=== PATIENT | male | born 1985 | race Hispanic/Latino ===

== ENCOUNTER 2024-01-28 17:19 | Emergency (ER) | payer SELFPAY ==
[2024-01-28 17:22] VITALS: BP 149/87; PULSE 75; RESP 20; TEMP 36.2; O2SAT 100
--- NOTE | 2024-01-28 22:13 | PC.NURSE ---
Patient called 3 times to room by this RN and KEVIN Huang. No response in waiting room. LWBS-T
== END 2024-01-28 22:10 | disposition left against medical advice (07) ==
LOC: ANHED 22:22
PROVIDERS: PCP Family Medicine
DX: R42 Dizziness and giddiness (principal)
CPT/HCPCS: 99199

== ENCOUNTER 2024-02-17 07:32 | Outpatient (CLI) | payer OTHER, SELFPAY ==
--- NOTE | ~2024-02-17 | MR_ITS ---
EXAMINATION: MR brain/brain stem wo con DATE: 02/17/2024 08:26 INDICATION: Dizziness and giddiness TECHNIQUE: Magnetic resonance imaging (MRI) of the brain and brainstem was performed without intraven ous contrast. Sequences included sagittal and axial T1-weighted SE, axial diffusion-weighted FS SE, a xial 3D SWAN, axial T2-weighted FLAIR, and axial T2-weighted FSE. Apparent diffusion coefficient (ADC ) maps were created. COMPARISON: None. FINDINGS: There are no areas of restricted diffusion to suggest acute infarction. No intracranial hemorrhage or abnormal intracranial mass lesion. There are no intraparenchymal signal abnormalities seen on the ot her pulse sequences. The ventricles are symmetric and normal in size. There are no abnormal extra-axi al fluid collections. Flow voids are seen in the cerebral arteries on the T2-weighted sequences consi stent with their expected patency. Visualized orbits and soft tissues are unremarkable. Mild mucosal thickening the paranasal sinuses IMPRESSION: 1. Normal brain. Reviewed, dictated and finalized at location A. LER OVENS IMPRESSION: 1. Normal brain.
--- NOTE | ~2024-02-17 | MR_ITS ---
EXAMINATION: MRA brain wo con DATE: 02/17/2024 08:26 INDICATION: Dizziness and giddiness TECHNIQUE: Magnetic resonance angiography (MRA) of the brain was performed without intravenous contrast by the 3 D [id number]-[id number] technique. COMPARISON: None. FINDINGS: There is normal flow related signal seen within the vertebral, basilar and internal carotid arteries. Bilateral vertebral arteries are codominant. There is no proximal stenosis. There are no aneurysms identified. Both A1 and P1 segments are patent. There is also a patent right posterior commuting art jessenia and patent but diminutive anterior to indicating left posterior communicating arteries. Flow in t he cerebral arteries is symmetric. IMPRESSION: 1. Normal cerebral MR angiogram. Reviewed, dictated and finalized at location A. ECTIONS ATTORNEY
== END 2024-02-17 07:33 | disposition home or self-care (01) ==
PROVIDERS: PCP Nurse Practitioner Family; Visit Provider Nurse Practitioner Family
DX: R42 Dizziness and giddiness (principal); R20.2 Paresthesia of skin; R06.02 Shortness of breath; H93.A9 Pulsatile tinnitus, unspecified ear; R47.9 Unspecified speech disturbances
CPT/HCPCS: 70544; 70551

== ENCOUNTER 2024-02-20 08:43 | Outpatient (CLI) | payer OTHER, SELFPAY ==
--- NOTE | 2024-02-20 08:52 | ECHO_ITS ---
Patient Info Name: Hemal Lowry Age: 38 years : 1985 Gender: Male Ht: 70 in Wt: 190 lbs BSA: 2.08 m2 HR: 98 bpm BP: 125 / 84 mmHg Technical Quality: Good Exam Date: 02/20/2024 9:08 AM Exam Location: Echo Lab Patient Status: Outpatient Admit Date: 02/20/2024 Staff Ordering Physician: Kamryn Whitman APRN Maple Sugar Maker: Janice Sanabria RDCS Attending Provider: Kamryn Whitman APRN Exam Type: CA echo doppler color flow Study Info Indications R06.02 - Shortness of breath Complete two-dimensional, color flow and Doppler transthoracic echocardiogram is performed. Strain analysis performed. Summary 1. Complete two-dimensional, color flow and Doppler transthoracic echocardiogram is performed. 2. Left ventricular chamber dimension is normal. 3. Left ventricular systolic function is normal, estimated at 60-65%. 4. The left ventricular diastolic function is grade II diastolic dysfunction. 5. E/e' 6 is not elevated. 6. Global longitudinal strain is abnormal at -15.5%. 7. Left atrial chamber dimension is mildly enlarged. 8. There is mild aortic valve sclerosis. 9. There is trace tricuspid valve regurgitation. 10. No pulmonary hypertension, estimated pulmonary arterial systolic pressure is 20 mmHg. Left Ventricle E/e' 6 is not elevated. Global longitudinal strain is abnormal at -15.5%. Left ventricular chamber dimension is normal. Left ventricular systolic function is normal, estimated at 60-65%. The left ventricular diastolic function is grade II diastolic dysfunction. Right Ventricle Right ventricular chamber dimension is normal. Right ventricular systolic function is normal. Left Atria Left atrial chamber dimension is mildly enlarged. Right Atria Right atrial chamber dimension is normal. Aortic Valve The aortic valve is trileaflet. There is mild aortic valve sclerosis. There is no aortic valve stenosis. There is no aortic valve regurgitation. Pulmonic Valve There is no pulmonic regurgitation. Mitral Valve There is no mitral valve stenosis. There is no mitral valve regurgitation. Tricuspid Valve There is trace tricuspid valve regurgitation. No pulmonary hypertension, estimated pulmonary arterial systolic pressure is 20 mmHg. Pericardium/Pleural There is no pericardial effusion. Inferior Vena Cava Normal inferior vena cava with >50% collapse upon inspiration consistent with normal right atrial pressure, 5 mmHg. Aorta The aortic root size at the sinus of Valsalva is normal. Left Ventricular Outflow Tract Name Value Normal LVOT 2D LVOT Diameter 2.0 cm LVOT Doppler LVOT Peak Gradient 4 mmHg LVOT Mean Gradient 2 mmHg LVOT VTI 19 cm LVOT VTI/AV VTI Ratio 0.9 LVOT Stroke Volume 63 ml LVOT CO 4.5 l/min LVOT CI 2.2 l/min/m2 Pulmonic Valve Name Value Normal RVOT Doppler RVOT Peak Gradient 4 mmHg PV Doppler PV Peak Gradient 4 mmHg Mitral Valve Name Value Normal MV Doppler MV Decel [place] 408 cm/s2 MV PHT 63 ms MV Area (PHT) 3.5 cm2 4.0-5.0 MV Diastolic Function MV E Peak Velocity 89 cm/s MV A Peak Velocity 65 cm/s MV E/A 1.4 MV Decel Time 218 ms Tricuspid Valve Name Value Normal TV Regurgitation Doppler TR Peak Velocity 195 cm/s TR Peak Gradient 15 mmHg Estimated PAP/RSVP RA Pressure 5 mmHg <=5 PA Systolic Pressure 20 mmHg <36 RV Systolic Pressure 20 mmHg <36 Aorta Name Value Normal Ascending Aorta Ao Root Diameter (MM) 2.8 cm Ao Root Diam Index (MM) 1.4 cm/m2 Aortic Valve Name Value Normal AV Doppler AV Peak Velocity 114 cm/s AV Peak Gradient 5 mmHg AV Mean Gradient 3 mmHg AV VTI 23 cm AV Area (Cont Eq VTI) 2.8 cm2 >=3.0 AV Area (Cont Eq Osmani) 2.8 cm2 AV Regurgitation 2D LVOT Area 3.2 cm2 Ventricles Name Value Normal LV Dimensions 2D/MM IVS Diastolic Thickness (2D) 0.7 cm 0.6-1.0 IVS Diastole Thickness (MM) 0.8 cm 0.6-1.0 LVID Diastole (2D) 4.6 cm 4.2-5.8 LVID Diastole (MM) 4.6 cm 4.2-5.8 LVIW Diastolic Thickness (2D) 0.7 cm 0.6-1.0 LVIW Diastolic Thickness (MM) 0.9 cm 0.6-1.0 LVID Systole (2D) 3.0 cm 2.5-4.0 LVID Systole (MM) 2.4 cm 2.5-4.0 LVOT Diameter 2.0 cm LV Mass (2D Cubed) 102.85 g 88.00-224.00 LV Mass Index (2D Cubed) 49 g/m2 49-115 Relative Wall Thickness (2D) 0.32 LV Mass (MM Cubed) 119.75 g 88.00-224.00 LV Mass Index (MM Cubed) 58 g/m2 49-115 Relative Wall Thickness (MM) 0.38 LV Fractional Shortening/Ejection Fraction 2D/MM LV Fractional Shortening (2D) 35 % 25-43 LV Fractional Shortening (MM) 48 % 25-43 LV EF (MM Teicholz) 79 % 52-72 LV EF (2D Teicholz) 64 % 52-72 LV Diastolic Volume (4C MOD) 69 ml LV EF (4C MOD) 65 % LV Diastolic Volume (2C MOD) 77 ml LV EF (2C MOD) 67 % LV Diastolic Volume (BP MOD) 72 ml 62-150 LV Diastolic Volume Index (BP MOD) 35 ml/m2 34-74 LV Systolic Volume (BP MOD) 25 ml 21-61 LV Systolic Volume Index (BP MOD) 12 ml/m2 11-31 LV EF (BP MOD) 65 % 52-72 LV Diastolic Length (4C) 8.3 cm LV Systolic Length (4C) 6.4 cm LV Stroke Volume (4C MOD) 45 ml Atria Name Value Normal LA Dimensions LA Dimension (MM) 3.5 cm 3.0-4.1 LA Volume (4C A-L) 50 ml LA Volume (BP A-L) 52 ml RA Dimensions RA Area (4C) 13.4 cm2 <=18.0 EchoPAC Name Value Normal AutoEF LVCO_BiP_Q (Qhws2REY) 3.9 l/min LVEF_BiP_Q (Qmpg1PCG) 60 % LVSV_BiP_Q (Rjgz1VRZ) 57 ml LVVED_BiP_Q (Mlzp6OQR) 95 ml LVVES_BiP_Q (Ijeo6YIC) 37 ml HR_4Ch_Q (Xzgg3OWY) 67 bpm LVCO_4Ch_Q (Cxcs3YSX) 3.3 l/min LVEF_4Ch_Q (Tifb3UUE) 56 % LVLd_4Ch_Q (Qwpi3OOH) 8.5 cm LVLs_4Ch_Q (Pufd8AUI) 6.8 cm LVSV_4Ch_Q (Jeya4MGP) 49 ml LVVED_4Ch_Q (Ycem8KEZ) 87 ml LVVES_4Ch_Q (Hubl6YWE) 38 ml HR_2Ch_Q (Wsik3AZA) 69 bpm LVCO_2Ch_Q (Mrsx6IKG) 4.6 l/min LVEF_2Ch_Q (Tkcv8VCK) 64 % LVLd_2Ch_Q (Uglo2QPT) 8.7 cm LVLs_2Ch_Q (Vwvq3WGB) 6.8 cm LVSV_2Ch_Q (Ydzo6ZIW) 66 ml LVVED_2Ch_Q (Pyio8RWR) 103 ml LVVES_2Ch_Q (Rbon0JPB) 37 ml EDDIE AA peak sys SL (AWMA) 17.8 % AAS peak sys SL (AWMA) 18.5 % AI peak sys SL (AWMA) 24.1 % AL peak sys SL (AWMA) 17.0 % AP peak sys SL (AWMA) 19.3 % peak sys SL (AWMA) 21.9 % AVC (AWMA) 443 ms BA peak sys SL (AWMA) 17.3 % BAS peak sys SL (AWMA) 11.3 % BI peak sys SL (AWMA) 16.8 % BL peak sys SL (AWMA) 11.1 % BP peak sys SL (AWMA) 13.2 % BS peak sys SL (AWMA) 15.5 % G peak SL(A2C) (AWMA) 17.3 % G peak SL(A4C) (AWMA) 14.9 % G peak SL(APLAX) (AWMA) 14.4 % G peak SL(Avg) (AWMA) 15.6 % MA peak sys SL (AWMA) 16.0 % MAS peak sys SL (AWMA) 12.9 % ID peak sys SL (AWMA) 18.5 % ML peak sys SL (AWMA) 14.1 % MP peak sys SL (AWMA) 14.0 % MS peak sys SL (AWMA) 16.4 % Report Signatures
== END 2024-02-20 08:44 | disposition home or self-care (01) ==
LOC: ANHCARD 08:45
PROVIDERS: PCP Family Medicine; Visit Provider Nurse Practitioner Family
DX: R06.02 Shortness of breath (principal); R20.2 Paresthesia of skin; R42 Dizziness and giddiness
CPT/HCPCS: 93306

== ENCOUNTER 2024-03-01 09:05 | Outpatient (CLI) | payer OTHER, SELFPAY ==
[2024-03-01 09:49] LABS: Eosinophils Absolute Auto 0.1 K/mm3 (0-0.3); Eosinophils Percent Auto 2.8 % (0-4.4); Hematocrit 44.2 % (42.0-52.0); Immature Granulocyte Absolute 0.01 K/mm3 (0.00-0.031); Immature Granulocyte Percent A 0.3 % (0-0.5); Lymphocytes Absolute Auto 1.56 K/mm3 (0.9-3.2); Lymphocytes Percent Auto 39.7 % (18.3-44.2); Mean Corpuscular HGB Conc 33.9 g/dl (32-36); Mean Corpuscular Hemoglobin 32.1 pg (26-34); Mean Corpuscular Volume 94.6 fl (80-100); Mean Platelet Volume 10.8 fl (7.4-10.4); Monocytes Absolute Auto 0.4 K/mm3 (0.1-0.6); Monocytes Percent Auto 9.4 % (2.6-8.5); Neutrophils Absolute Auto 1.8 K/mm3 (1.3-6.7); Neutrophils Percent Auto 46.8 % (45.5-73.1); Platelet Count Result 291 k/mm3 (150-375); Red Blood Count 4.67 M/mm3 (4.6-6.20); Red Cell Distribution Width 12.7 % (11.5-14.5); White Blood Count 3.9 K/mm3 (4.5-10.0)
[2024-03-01 09:59] LABS: Alanine Aminotransferase 26 U/L (6-50); Albumin Level 4.6 g/dL (3.5-5.1); Alkaline Phosphatase 68 U/L (38-126); Anion Gap 5 mmol/L (4-12); Aspartate Amino Transferase 24 U/L (17-59); Bilirubin,Total 0.9 mg/dL (0.2-1.3); Blood Urea Nitrogen 14 mg/dL (9-20); Carbon Dioxide 28 mmol/L (22-30); Chloride 106 mmol/L (98-107); Cholesterol 259 mg/dL (0-200); Estimated Glomerular Filt Rate > 60; Glucose 93 mg/dL (65-110); HDL Direct 64 mg/dL; Potassium 3.9 mmol/L (3.4-5.0); Sodium 139 mmol/L (137-145); Triglycerides 95 mg/dL (<150)
[2024-03-01 10:10] LABS: LDL Cholesterol Direct 143 mg/dL
[2024-03-01 10:41] LABS: Vitamin D 25 Hydroxy 31.9 ng/mL
[2024-03-01 11:04] LABS: Folic Acid 15.6 ng/mL (2.76->20)
[2024-03-04 16:14] LABS: Thyroid Peroxidase Antibodies 29 IU/mL (<9)
== END 2024-03-01 09:06 | disposition home or self-care (01) ==
LOC: ANHLAB 09:06
PROVIDERS: PCP Nurse Practitioner Family; Visit Provider Nurse Practitioner Family
DX: E78.5 Hyperlipidemia, unspecified (principal); H93.A9 Pulsatile tinnitus, unspecified ear; M50.30 Other cervical disc degeneration, unspecified cervical region; R00.2 Palpitations; R06.02 Shortness of breath; R20.2 Paresthesia of skin; R42 Dizziness and giddiness; R47.9 Unspecified speech disturbances; R53.83 Other fatigue; R68.82 Decreased libido; R79.89 Other specified abnormal findings of blood chemistry; N39.43 Post-void dribbling; R35.1 Nocturia
CPT/HCPCS: 36415; 80053; 80061; 82306; 82607; 82746; 84153; 84402; 84403; 84443; 85025

== ENCOUNTER 2024-03-08 10:01 | Outpatient (CLI) | payer OTHER, SELFPAY | END 2024-03-08 10:02 | disposition home or self-care (01) | LOC: ANHCARD 10:01 | PROVIDERS: PCP Nurse Practitioner Family; Visit Provider Nurse Practitioner Family | DX: R00.2 Palpitations (principal) | CPT/HCPCS: 93242 ==

== ENCOUNTER 2024-03-26 08:50 | Outpatient (CLI) | payer OTHER, SELFPAY ==
--- NOTE | ~2024-03-26 | US_ITS ---
Thyroid ultrasound. Clinical History: Nontoxic goiter Findings: Real-time sonography of the thyroid gland was performed. The right lobe measures 5.6 x 2.3 x 2.2 cm. The left lobe measures 5.5 x 1.7 x 1.7 cm. The isthmus is 3 mm in AP diameter. Thyroid parenchyma is diffusely heterogeneous. There is a 1.3 x 0.6 x 1.4 cm spongiform nodule in the isthmus, benign. Impression: 1.4 cm spongiform nodule in the isthmus, with benign morphology. Heterogeneous thyroid parenchyma otherwise.. Reviewed, dictated and finalized at location . NETWORK ENGINEER Impression: 1.4 cm spongiform nodule in the isthmus, with benign morphology. Heterogeneous thyroid parenchyma otherwise..
--- NOTE | ~2024-03-26 | US_ITS ---
Procedure: Duplex Doppler examination of the bilateral carotids. Indication: Pain Technique: Real time, color-flow and pulse wave Doppler examination of the bilateral carotids was performed. Findings: Dowell scale ultrasonography of the right neck demonstrated no significant plaque. There was demonstrat ion of normal color-flow and Doppler waveforms within the right common, internal and external carotid arteries. The peak systolic velocities in the right common, internal and external carotid arteries w ere demonstrated to be 74 cm/sec, 63 cm/sec and 64 cm/sec respectively. The right ICA/CCA ratio was 0 .8.The proximal right internal carotid artery demonstrates 0% stenosis relative to the normal distal artery lumen diameter. Dowell scale sonography of the left neck demonstrated no significant plaque. There was demonstration of normal color-flow and wave forms within the left common, internal and external carotid arteries. The peak systolic velocities in the left common, internal and external carotid arteries were demonstrate d to be 73cm/sec, 67 cm/sec and 74 cm/sec respectively. The left ICA/CCA ratio was 0.8. The proximal left internal carotid artery demonstrates 0% stenosis relative to the normal distal artery lumen diam eter. There was antegrade flow demonstrated in the bilateral vertebral arteries. Impression: No hemodynamically significant stenosis of the bilateral internal carotid arteries. Antegrade flow in the bilateral vertebral arteries. Note: The methodology used is an indirect measurement validated against a direct method (such as the NASCET criteria) that compares diameters at the stenosis to the distal ICA. Reviewed, dictated and finalized at [facility]. UME SEAMSTRESS Impression: No hemodynamically significant stenosis of the bilateral internal carotid arter ies. Antegrade flow in the bilateral vertebral arteries. Note: The methodology used is an indirect measurement validated against a direct meth od (such as the NASCET criteria) that compares diameters at the stenosis to the distal ICA.
== END 2024-03-26 08:51 | disposition home or self-care (01) ==
LOC: MICIMG 08:51
PROVIDERS: PCP Nurse Practitioner Family; Visit Provider Nurse Practitioner Family
DX: E07.89 Other specified disorders of thyroid (principal); E07.9 Disorder of thyroid, unspecified; M79.609 Pain in unspecified limb; R20.2 Paresthesia of skin; E04.9 Nontoxic goiter, unspecified
CPT/HCPCS: 76536; 93880

== ENCOUNTER 2024-04-18 14:44 | Outpatient (CLI) | payer OTHER, SELFPAY ==
--- NOTE | ~2024-04-18 | XR_ITS ---
EXAMINATION: XR soft tissue neck DATE: 04/18/2024 15:08 INDICATION: Dysphagia, unspecified. TECHNIQUE: 2 views of the neck soft tissues were obtained. COMPARISON: None. FINDINGS: The adenoids, palatine tonsils, prevertebral soft tissues, epiglottis, and glottis are norm al. No radiopaque foreign body. IMPRESSION: 1. Normal neck soft tissues. Reviewed, dictated and finalized at location B. OR PROGRAM ANALYST
== END 2024-04-18 14:45 | disposition home or self-care (01) ==
PROVIDERS: PCP Nurse Practitioner Family; Visit Provider Nurse Practitioner Family
DX: R13.10 Dysphagia, unspecified (principal)
CPT/HCPCS: 70360

== ENCOUNTER 2024-05-24 00:53 | Day surgery (SDC) | payer OTHER, SELFPAY ==
[2024-05-10 13:31] VITALS: BMI 24.4
[2024-05-24 11:01] VITALS: BP 114/87; PULSE 99; RESP 16; TEMP 36.2; O2SAT 99; BMI 23.1
[2024-05-24] MEDS: LACTATED RINGERS 1,000 ML 150 ML IV CONT (11:08)
--- NOTE | 2024-05-24 11:09 | WPDANESEPPF ---
Anes - Initial Pre Proc Eval Procedure: Operation Date: 05/24/24 15:00 Proposed Procedures p Esophagogastroduodenoscopy & Colonoscopy - Fabrice Aldana MD Date/Time: 05/24/24 11:09 Surgeon: Fabrice Aldana MD Pre Op Diagnosis: Dysphagia, GERD, dypshonia Patient Data Age: 38 Gender: M Height: 1.78 m Weight: 73.2 kg Last Vital Signs Temp 36.2 C L 05/24/24 11:01 Pulse 99 05/24/24 11:01 Resp 16 05/24/24 11:01 BP 114/87 05/24/24 11:01 Pulse Ox 99 05/24/24 11:01 O2 Del Method Room Air 05/24/24 11:01 Allergies Allergy/AdvReac Type Severity Reaction Status Date / Time Penicillins Allergy Mild RASH Verified 05/24/24 11:00 ampicillin Allergy Unknown Unknown Verified 05/24/24 11:00 Home Medications ?Medication ?Instructions ?Recorded ?Confirmed ?Type sildenafil 50 mg tablet (Viagra) 50 mg PO DAILY PRN sexual activity 04/18/24 05/10/24 Rx #30 tabs famotidine 10 mg tablet 10 mg PO BID PRN acid reflux #60 05/03/24 05/10/24 Rx tabs pantoprazole 40 mg tablet,delayed 40 mg PO QAM 8 weeks #56 tabs 05/03/24 05/24/24 Rx release Patient hx anesthesia problems: none Family hx anesthesia problems: none Results Review: All pre-operative results and documents have been reviewed as part of the pre-operative evaluation. [facility] Past Medical History Medical History Encounter to establish care Dyslipidemia Surgical History Surgical History History of lumpectomy left breast - 2005 Family History Family History Father Hypertension Carcinoma of colon Grandparent Hypertension Diabetes mellitus Grandparent Hypertension Diabetes mellitus Social History Social History Smoking status: Never smoker Second hand tobacco smoke exposure: No Alcohol intake: current Drinks per week: 12 Alcohol use details: socially Substance use: never Substance use type: does not use Living arrangements: with family Gender identity (if verbalized by the patient): Male Spiritual care concerns: No Anes - Eval Final PreProcedure Day of Procedure 05/24/24 11:09 Patient weight: normal Heart: regular rate and rhythm Lungs: clear to auscultation and normal air movement Airway: Mallampati scale class II Neurological: alert and oriented Last oral intake: >/= 8 hours ASA classification: II Emergent: no Anesthetic plan: proceed Anesthesia type and monitoring: general GIVS and standard monitoring Results Review: All pre-operative results and documents have been reviewed as part of the pre-operative evaluation. Informed Consent: The patient's anesthetic plan and its attendant risks and benefits were discussed with the patient/family/POA. Questions were solicited and answers provided to the satisfaction of the patient/family/POA.
--- NOTE | 2024-05-24 11:19 | PM.HPGS ---
History of Present Illness History of Present Illness Consent: Risks, benefits, and alternatives have been discussed and questions answered. Patient agrees to proceed with procedure. Chief complaint: Dysphagia, GERD, dypshonia Narrative: Hemal Lowry is a 38 year old male with neck discomfort , then had massage therapy and more discomfort and numbness in arms- pcp gave steroid. Since with more burping, also chest tightness and gerd, never had egd. Last colonoscopy 6 years ago, father had colon cancer Review of Systems Review of Systems: All systems reviewed & are unremarkable except as noted in HPI and below PMFSH Past Medical History Medical History (Updated 05/24/24 @ 11:21 by Fabrice Aldana MD) Functional burping disorder Encounter to establish care Dyslipidemia Surgical History Surgical History History of lumpectomy left breast - 2005 Family History Family History Father Hypertension Carcinoma of colon Grandparent Hypertension Diabetes mellitus Grandparent Hypertension Diabetes mellitus Social History Social History Smoking status: Never smoker Second hand tobacco smoke exposure: No Alcohol intake: current Drinks per week: 12 Alcohol use details: socially Substance use: never Substance use type: does not use Living arrangements: with family Gender identity (if verbalized by the patient): Male Spiritual care concerns: No Meds Home Medications and Allergies Home Medications ?Medication ?Instructions ?Recorded ?Confirmed ?Type sildenafil 50 mg tablet (Viagra) 50 mg PO DAILY PRN sexual activity 04/18/24 05/10/24 Rx #30 tabs famotidine 10 mg tablet 10 mg PO BID PRN acid reflux #60 05/03/24 05/10/24 Rx tabs pantoprazole 40 mg tablet,delayed 40 mg PO QAM 8 weeks #56 tabs 05/03/24 05/24/24 Rx release Allergies Allergy/AdvReac Type Severity Reaction Status Date / Time Penicillins Allergy Mild RASH Verified 05/24/24 11:00 ampicillin Allergy Unknown Unknown Verified 05/24/24 11:00 Vital Signs Vital Signs - 24 hr 05/24/24 11:01 Temperature 97.2 F L Pulse Rate 99 Respiratory Rate 16 Blood Pressure 114/87 Pulse Oximetry 99 Oxygen Delivery Room Air Exam Const: General: comfortable and no acute distress HENMT: Face/Nose/Sinus: Normal nares present Eyes: General: appearance normal, both eyes and all related structures Neck: Neck: no JVD Resp: Auscultation: clear to auscultation bilaterally Cardio: Rate: regular rate Rhythm: regular rhythm GI: Inspection: non-distended GI Palp: Yes Soft to palpation Skin: General skin exam: normal color Neuro: Speech: normal speech Extrem: General: normal to inspection Psych: Mental Status: mental status grossly normal Assessment and Plan Assessment and plan (1) GERD (gastroesophageal reflux disease): Qualifiers: Esophagitis presence: without esophagitis Qualified Code(s): K21.9 - Gastro-esophageal reflux disease without esophagitis Code(s): K21.9 - Gastro-esophageal reflux disease without esophagitis Status: Acute Assessment and Plan: egd (2) Family history of malignant neoplasm of colon in father: Code(s): Z80.0 - Family history of malignant neoplasm of digestive organs Status: Acute Assessment and Plan: colonoscopy (3) Functional burping disorder: Code(s): R14.2 - Eructation Status: Acute
--- NOTE | 2024-05-24 11:32 | SUR.OPER ---
egd ended at 1128 and colon started at 1133
[2024-05-24 11:46] VITALS: BP 80/47; PULSE 73; RESP 16; O2SAT 98
[2024-05-24 11:56] VITALS: BP 81/49; PULSE 71; RESP 13; O2SAT 97
[2024-05-24 12:06] VITALS: BP 110/75; PULSE 72; RESP 19; O2SAT 100
== END 2024-05-24 12:18 | disposition home or self-care (01) ==
PROVIDERS: PCP Nurse Practitioner Family; Visit Provider Internal Medicine Gastroenterology
PROC: 0DJ08ZZ Inspection of Upper Intestinal Tract, Via Natural or Artificial Opening Endoscopic (ICD-10-PCS; CPT 45378; principal; 2024-05-24 15:00)
DX: Z12.11 Encounter for screening for malignant neoplasm of colon (principal); D12.2 Benign neoplasm of ascending colon; D12.8 Benign neoplasm of rectum; K64.8 Other hemorrhoids; Z80.0 Family history of malignant neoplasm of digestive organs; R13.10 Dysphagia, unspecified; R49.0 Dysphonia; K21.9 Gastro-esophageal reflux disease without esophagitis; R07.89 Other chest pain; R14.2 Eructation; E78.49 Other hyperlipidemia
CPT/HCPCS: 43239; 45385; 88305; J2003; J2704; J7120

== ENCOUNTER 2024-06-07 11:57 | Outpatient (CLI) | payer OTHER, SELFPAY ==
--- NOTE | ~2024-06-07 | US_ITS ---
EXAMINATION: US soft tissue head and neck DATE: 06/07/2024 12:11 INDICATION: Localized swelling, mass and lump, head. TECHNIQUE: Multiple grayscale and Doppler ultrasound images of the head and neck were obtained. COMPARISON: None FINDINGS: There is no abnormal mass in the right posterior scalp in the patient's area of concern. IMPRESSION: 1. No abnormal mass in the right posterior scalp in the patient's area of concern. Reviewed, dictated and finalized at location L. IMPRESSION: 1. No abnormal mass in the right posterior scalp in the patient's area of monica rn.
== END 2024-06-07 11:58 | disposition home or self-care (01) ==
LOC: MICIMG 11:58
PROVIDERS: PCP Nurse Practitioner Family; Visit Provider Nurse Practitioner Family
DX: R22.0 Localized swelling, mass and lump, head (principal)
CPT/HCPCS: 76536

== ENCOUNTER 2024-09-06 08:42 | Outpatient (CLI) | payer OTHER, SELFPAY ==
--- OUTSIDE RECORDS SUMMARY | 2024-09-06 08:47 | XMS_ITS | Continuity of Care Document ---
Author Organization [facility] Address [address] [place] [address] Phone Care Team Providers Care Tribal Judge Name Role Phone Jorge Ordoñez DO Unavailable Unavailable Advance Directives Directive Yes / No Effective Date File Name No Information Encounters Encounter Description Practice Location Reason(s) For Visit Diagnoses Date Provider Providers Copied on Encounter [facility], [address], [place], [place], [id number], [phone] [facility] No Information Smita Husain. [address] [place], [address], . tel: [phone] Family History Family Member Type Diagnosis Age At Onset No Information Payers Payer name Insurance type Covered republican ID Authoriza tion(s) Medicaid [facility] [id number] Social History Type Description Quantity Date Captured Comments Sex Male Smoking Status No Information Chief Complaint And Reason For Visit No Information Reason For Referral Reason For Referral No Information History Of Present Illness Encounter Date Complaint History Of Prese nt Illness No Information Functional Status Date Functional Assessmen t No Information Instructions Date Instruction Additional Infor mation No Information Assessments Type Assessment Date No Information Patient Care Teams Name Effective Dates (start - stop) Status Members No Information
--- OUTSIDE RECORDS SUMMARY | 2024-09-06 08:47 | XMS_ITS | Clinical Summary ---
Author Organization [facility] Address [address] [place] [address] Care Team Providers Care Long Wall Shear Operator Name Role Phone Meek Burrows MD Primary Care Provider [phone] Allergies Active Allergy Reactions Criticality Noted Date Comments Penicillins Hives Medium 02/28/2024 Medications cetirizine (ZyrTEC) 10 mg tablet Take 1 tablet (10 mg total) by mouth daily 5 Active fluticasone propionate (FLONASE) 50 mcg/actuation nasal spray Administer 2 sprays into each nostril daily [address] (PROTONIX) 40 mg EC tabletIndicatio ns:Laryngophary ngeal reflux (LPR) Take 1 tablet (40 mg total) by mouth 2 (two) times a day before breakfast and dinner 60 tablet 2 5 Active Active Problems Problem Noted Date Diagnosed Date Laryngopharyngeal reflux (LPR) 06/24/2024 Pharyngoesophageal dysphagia 06/24/2024 Deviated nasal septum 06/24/2024 Encounters Date Type Department Care Team Description 06/24/2024 3:30 PM CDT Office Visit [facility] Otolaryngology [address] [place] [id number] Genaro Trevino II, MD Laryngopharyngeal reflux (LPR) (Primary Dx); Pharyngoesophageal dysphagia; Deviated nasal septum from Last 3 Months Surgical History Surgery Date Site/Laterality Comments LASIK MASTECTOMY FOR GYNECOMASTIA Medical History Medical History Date Comments Dizziness Pressure in head Throat tightness GERD (gastroesophageal reflux disease) Ear problems Tinnitus Hoarseness Family History Medical History Relation Name Comments Cancer Father Heart disease Father Hyperlipidemia Father Hypertension Father Heart disease Mother's Brother Relation Name Status Comments Father Mother's Brother Social History Tobacco Use Types Packs/Day Years Used Date Smoking Tobacco: Never Smokeless Tobacco: Never Tobacco Cessation:Counseling Given: Not Answered Personal Safety Answer Date Recorded Have you ever been in or are you currently in a harmful physical or emotional relationship or is someone making you feel afraid or unsafe? Denies 01/30/2024 Sex and Gender Information Value Date Recorded Sex Assigned at Not on file Legal Sex Male 5:46 PM DIRECTOR LEARNING Gender Identity Not on file Sexual Orientation Not on file Obstetrics History Last Filed Vital Signs Vital Sign Reading Time Taken Comments Blood Pressure 156/80 02/28/2024 9:28 AM DIRECTOR LEARNING Pulse 83 02/28/2024 9:28 AM DIRECTOR LEARNING Temperature 37 C (98.6 F) 01/30/2024 2:04 PM DIRECTOR LEARNING Respiratory Rate 17 06/24/2024 3:32 PM CDT Oxygen Saturation 99% 01/30/2024 2:04 PM DIRECTOR LEARNING Inhaled Oxygen Concentration - - Weight 86.2 kg (190 lb) 06/24/2024 3:32 PM CDT Height 177.8 cm (5' 10) 06/24/2024 3:32 PM CDT Body Mass Index 27.26 06/24/2024 3:32 PM CDT Plan of Treatment Health Maintenance Due Date Last Done Comments Depression Screening 1985 Hepatitis C Screening 1985 Varicella Vaccines (1 of 2 - 13+ 2-dose series) 1998 DTaP/Tdap/Td Vaccine (6 - Tdap) 09/16/1999 09/15/1999, 11/13/1990, 01/06/1988, Additional history exists Regular Well Visit/Exam 18-64 08/10/2003 Covid-19 Vaccine ( season) 2023 04/04/2021, 04/23/2020, 03/26/2020 Influenza Vaccine (Season Ended) 2024 Hepatitis B Screening Completed 07/28/1996 , 04/02/1996, 02/14/1996 HPV Vaccines Aged Out No longer eligi ble based on patient's age to complete this topic Pneumococcal vaccine <65 Aged Out No longer eligible based on patient's age to complete this topic Insurance [facility] H[facility]/PPO Address: [facility] [id number] [place] [address] Care Teams Long Wall Shear Operator Relationship Specialty Start Date End Date Meek Burrows MD [address] [place] [id number] PCP - General Family Practice 03/26/24
--- OUTSIDE RECORDS SUMMARY | 2024-09-06 08:47 | XMS_ITS | Referral Summary ---
Author Organization [facility] Address [address] [place] [address] Care Team Providers Care Manager Visual Name Role Phone Meek Burrows MD Primary Care Provider [phone] Encounters Date Type Department Care Team Description 06/24/2024 3:30 PM CDT Office Visit [facility] Otolaryngology [address] [place] [phone] Genaro Trevino II, MD Laryngopharyngeal reflux (LPR) (Primary Dx); Pharyngoesophageal dysphagia; Deviated nasal septum from Last 3 Months Allergies Active Allergy Reactions Criticality Noted Date [...] Pharyngoesophageal dysphagia 06/24/2024 Deviated nasal septum 06/24/2024 Social History Tobacco Use Types Packs/Day Years [...] on file Legal Sex Male 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 Gender Identity Not on file Sexual Orientation Not on file Last Filed Vital Signs Vital Sign Reading Time Taken Comments Blood Pressure 156/80 02/28/2024 9:28 AM UTILITY ACCOUNTS DIRECTOR Pulse 83 02/28/2024 9:28 AM UTILITY ACCOUNTS DIRECTOR Temperature 37 C (98.6 F) 01/30/2024 2:04 PM UTILITY ACCOUNTS DIRECTOR Respiratory Rate 17 06/24/2024 3:32 PM CDT Oxygen Saturation 99% 01/30/2024 2:04 PM UTILITY ACCOUNTS DIRECTOR Inhaled Oxygen Concentration - - Weight 86.2 kg (190 lb) 06/24/2024 3:32 PM CDT Height 177.8 cm (5' 10) 06/24/2024 3:32 PM CDT Body Mass Index 27.26 06/24/2024 3:32 PM CDT Plan of Treatment Not on file Insurance [place] [id number] [employer] CHOICE [facility]US [facility] HMO/PPO Address: [facility] [address] [place] [address] Care Teams Manager Visual Relationship Specialty Start Date End Date Meek Burrows MD [address] [place] [address] PCP - General Family Practice 03/26/24
[2024-09-06 09:55] LABS: Cholesterol 221 mg/dL (0-200); HDL Direct 82 mg/dL; Triglycerides 78 mg/dL (<150)
[2024-09-06 10:07] LABS: LDL Cholesterol Direct 111 mg/dL
[2024-09-06 10:26] LABS: Total Triiodothyronine (T3) 1.23 NG/ML (0.82-1.58)
[2024-09-09 11:24] LABS: Thyroid Peroxidase Antibodies 25 IU/mL (<9)
[2024-09-12 00:54] LABS: Thyrotropin Receptor Antibody <1.00 IU/L (< OR = 2.00)
== END 2024-09-06 08:43 | disposition home or self-care (01) ==
LOC: ANHLAB 08:43
PROVIDERS: PCP Nurse Practitioner Family; Visit Provider Nurse Practitioner Family
DX: G25.81 Restless legs syndrome (principal); R79.0 Abnormal level of blood mineral; E04.1 Nontoxic single thyroid nodule; E78.5 Hyperlipidemia, unspecified
CPT/HCPCS: 36415; 80061; 82728; 83519; 84439; 84443; 84445; 84480; 86800

== ENCOUNTER 2025-03-07 09:22 | Outpatient (CLI) | payer OTHER, SELFPAY ==
[2025-03-07 10:09] LABS: Hematocrit 45.5 % (42.0-52.0); Hemoglobin 15.6 g/dL (14.0-18.0); Mean Corpuscular HGB Conc 34.3 g/dl (32-36); Mean Corpuscular Hemoglobin 32.0 pg (26-34); Mean Corpuscular Volume 93.2 fl (80-100); Platelet Count Result 228 k/mm3 (150-375); Red Blood Count 4.88 M/mm3 (4.6-6.20); White Blood Count 4.7 K/mm3 (4.5-10.0)
[2025-03-07 10:42] LABS: Alanine Aminotransferase 32 U/L (6-50); Albumin Level 4.2 g/dL (3.5-5.1); Alkaline Phosphatase 66 U/L (38-126); Anion Gap 3 mmol/L (4-12); Aspartate Amino Transferase 36 U/L (17-59); Bilirubin,Total 0.9 mg/dL (0.2-1.3); Blood Urea Nitrogen 15 mg/dL (9-20); Calcium 9.1 mg/dL (8.4-10.2); Carbon Dioxide 28 mmol/L (22-30); Chloride 106 mmol/L (98-107); Cholesterol 233 mg/dL (0-200); Estimated Glomerular Filt Rate > 60; Glucose 92 mg/dL (65-110); HDL Direct 66 mg/dL; Potassium 3.6 mmol/L (3.4-5.0); Sodium 137 mmol/L (137-145); Total Protein 7.6 g/dL (6.3-8.2); Triglycerides 65 mg/dL (<150)
[2025-03-07 11:19] LABS: Thyroid Stimulating Hormone Reflex 1.930 uIU/mL (0.465-4.68)
[2025-03-07 13:28] LABS: Ferritin 28.20 ng/mL (17.9-464)
== END 2025-03-07 09:23 | disposition home or self-care (01) ==
LOC: ANHLAB 09:23
PROVIDERS: PCP Nurse Practitioner Family; Visit Provider Nurse Practitioner Family
DX: E55.9 Vitamin D deficiency, unspecified (principal); E04.1 Nontoxic single thyroid nodule; F41.9 Anxiety disorder, unspecified; F45.21 Hypochondriasis; I51.89 Other ill-defined heart diseases; R00.2 Palpitations; E78.5 Hyperlipidemia, unspecified; H93.13 Tinnitus, bilateral; J34.2 Deviated nasal septum; J34.3 Hypertrophy of nasal turbinates; R22.0 Localized swelling, mass and lump, head; K21.9 Gastro-esophageal reflux disease without esophagitis; R13.14 Dysphagia, pharyngoesophageal phase; Z86.0100 Personal history of colon polyps, unspecified; R35.1 Nocturia; N39.43 Post-void dribbling; R68.82 Decreased libido; N52.9 Male erectile dysfunction, unspecified; Z80.0 Family history of malignant neoplasm of digestive organs; Z86.19 Personal history of other infectious and parasitic diseases; M79.609 Pain in unspecified limb; R20.2 Paresthesia of skin; M50.30 Other cervical disc degeneration, unspecified cervical region; R06.02 Shortness of breath; G47.9 Sleep disorder, unspecified; G47.61 Periodic limb movement disorder; R42 Dizziness and giddiness; R53.83 Other fatigue; R79.89 Other specified abnormal findings of blood chemistry; R76.89 Other specified abnormal immunological findings in serum
CPT/HCPCS: 36415; 80053; 80061; 82306; 82728; 84443; 85027; 86376